=== PATIENT | female | born 1960 | race Caucasian/White ===

== ENCOUNTER 2019-04-03 12:02 | Emergency (ER) | payer MEDICARE, MEDICAID ==
[2019-04-03 12:23] VITALS: BP 130/52
[2019-04-03] MEDS ORDERED: cefTRIAXone 1 GM Vial IM ONE (12:34)
[2019-04-03] MEDS ORDERED: Diphtheria,Pertussis(Acell),Tetanus Vaccine 0.5 ML SDV IM ONE (12:34)
--- NOTE | 2019-04-03 12:36 | EDM.PDOC ---
ED HPI GENERAL MEDICAL PROBLEM - General Chief Complaint: Lower Extremity Injury/Pain Stated Complaint: LACERATION TO RT FOOT Time Seen by Provider: 04/03/19 12:02 Source of Information: Reports: Patient, Family (daughter) History Limitations: Reports: Physical Impairment - History of Present Illness INITIAL COMMENTS - FREE TEXT/NARRATIVE: 58 y.o.w. f with DM and DM complications, came with her daughter to the ed after the PT fell asleep in the wheel chair and fell off the wheelchair by stepping into a sharp object with her right 4th toe. Her 4th toe is only loosely attached to her right foot, there was active venous bleed as well. No other acute injuries. BP 130/52 RR 18 Temp 98.6 Pluse ox 98% on RA Pulse 98 Onset Date: 04/03/19 Onset Time: 07:00 Duration: Hour(s):, Constant Location: Reports: Lower Extremity, Right (4th toe) Quality: Reports: Ache, Dull Improves with: Reports: Rest Worsens with: Reports: Movement Context: Reports: Trauma (pt stepped onto on sharb object. ) Associated Symptoms: Reports: No Other Symptoms Treatments DAY CARE AIDE: Reports: Dressing(s) Right Feet Pain Score (Numeric/FACES): 10 - Related Data Allergies Allergy/AdvReac Type Severity Reaction Status Date / Time codeine Allergy Change Verified 04/03/19 12:06 Mental Status lactose Allergy Diarrhea Verified 04/03/19 12:06 Sulfa (Sulfonamide Allergy Cannot Verified 04/03/19 12:06 Antibiotics) Remember Home Meds: Home Meds Aspirin [Low Dose Aspirin EC] 162 mg PO DAILY 06/16/14 [History] Ibuprofen [Advil] 200 mg PO TID PRN 06/16/14 [History] Insulin Aspart [NovoLOG] 40 units SQ TID 06/16/14 [History] Insulin Glarg,Human.Rec.Analog [Lantus Solostar] 48 units SUBCUT DAILY 06/16/14 [History] Lisinopril/Hydrochlorothiazide [Lisinopril-Hctz 10-12.5 mg Tab] 1 tab PO DAILY 06/16/14 [History] Loperamide HCl [Anti-Diarrheal] 2 mg PO ASDIRECTED PRN 06/16/14 [History] metFORMIN [Glucophage] 500 mg PO BID 06/16/14 [History] Calcium/Cranberry Fruit [Cranberry Fruit 160-400 MG] 2 tab PO DAILY 04/07/16 [ History] Cholecalciferol (Vitamin D3) [Vitamin D] 5,000 unit PO DAILY 04/07/16 [History] Fish Oil/[place]-3 Fatty Acids [Fish Oil 1,000 MG] 2,000 mg PO DAILY 04/07/16 [ History] Varenicline Tartrate [Chantix] 1 each PO ASDIRECTED 04/07/16 [History] atorvaSTATin [Lipitor] 20 mg PO BEDTIME 04/07/16 [History] rOPINIRole HCl [Ropinirole HCl] 2 mg PO BEDTIME PRN 04/07/16 [History] Acetaminophen [Tylenol Arthritis] 2 tab PO BEDTIME 04/03/19 [History] Cephalexin [Keflex] 500 mg PO Q6HRRT #40 capsule 04/03/19 [Rx] Empagliflozin [Jardiance] 1 tab PO DAILY 04/03/19 [History] Furosemide 2 tab PO DAILY 04/03/19 [History] Gabapentin [Neurontin] 1 cap PO BEDTIME 04/03/19 [History] Past Medical History HEENT History: Reports: Other (See Below) Other HEENT History: DIABETIC RETINOPATHY OF BOTH EYES Cardiovascular History: Reports: High Cholesterol, Hypertension Musculoskeletal History: Reports: Amputation Endocrine/Metabolic History: Reports: Diabetes, Type II, Vitamin D Deficiency, Other (See Below) Other Endocrine/Metabolic History: TOXIC MULTINODULAR GOITER, ELEVATED ALKALINE PHOS. LEVEL Oncologic (Cancer) History: Reports: Cervix Dermatologic History: Reports: Other (See Below) Other Dermatologic History: ATOPIC DERMATITIS - Past Surgical History HEENT Surgical History: Reports: Myringotomy w Tube(s), Tonsillectomy, Other ( See Below) Female Surgical History: Reports: Hysterectomy Musculoskeletal Surgical History: Reports: Carpal Tunnel Social & Family History - Tobacco Use Smoking Status *Q: Current Every Day Smoker Years of Tobacco use: 30 Packs/Tins Daily: 1 Used Tobacco, but Quit: No Second Hand Smoke Exposure: No - Caffeine Use Caffeine Use: Reports: Coffee, Soda - Recreational Drug Use Recreational Drug Use: No Review of Systems - Review of Systems Review Of Systems: See Below Constitutional: Reports: No Symptoms Eyes: Reports: No Symptoms Ears: Reports: No Symptoms Nose: Reports: No Symptoms Mouth/Throat: Reports: No Symptoms Respiratory: Reports: No Symptoms Cardiovascular: Reports: No Symptoms GI/Abdominal: Reports: No Symptoms Genitourinary: Reports: No Symptoms Musculoskeletal: Reports: No Symptoms Skin: Reports: Lesions (right 4th toe) Neurological: Reports: No Symptoms Psychiatric: Reports: No Symptoms ED EXAM, GENERAL - Physical Exam Exam: See Below Exam Limited By: No Limitations General Appearance: Alert, WD/WN, Obese Eye Exam: Bilateral Eye: Normal Inspection Ears: Normal External Exam Ear Exam: Bilateral Ear: Auricle Normal Nose: Normal Inspection Throat/Mouth: Normal Inspection, Normal Lips, Normal Voice, No Airway Compromise Head: Atraumatic, Normocephalic Neck: Normal Inspection, Supple, Non-Tender, Full Range of Motion Respiratory/Chest: No Respiratory Distress, Lungs Clear, Normal Breath Sounds Cardiovascular: Normal Peripheral Pulses, Regular Rate, Rhythm, No Edema Peripheral Pulses: 1+: Brachial (L) GI/Abdominal: Normal Bowel Sounds, Soft, Non-Tender, No Organomegaly, Pelvis Stable (Female) Exam: Deferred Rectal (Female) Exam: Deferred Back Exam: Normal Inspection, Full Range of Motion Extremities: Other (left foot below knee amputation) Neurological: Alert, Oriented, CN II-XII Intact, Normal Cognition Psychiatric: Normal Affect, Normal Mood Skin Exam: Wound/Incision (4th toe right foot) Lymphatic: No Adenopathy ED TRAUMA EXTREMITY PROCEDURES - Laceration/Wound Repair Right Toe - Fourth Appearance: Subcutaneous, Stellate, Irregular, Mildly Contaminated Distal NVT: Other (Tendon and nerved fully lacerated. Pt is not able to =move toes because tendon and nerves cut at [facility] base) Anesthetic Type: Local Local Anesthesia - Bupivicaine (Marcaine): 0.5% Plain Local Anesthetic Volume: 4cc Skin Prep: Providone-Iodine (Betadine), Saline Exploration/Debridement/Repair: Wound Explored, In a Bloodless Field, Explored to Base, No Foreign Material Found Closed With: Sutures Suture Size: 3-0 # of Sutures: 4 Suture Type: Other (ethilon) Tetanus Status Addressed: Yes (today) Complications: No Course - Vital Signs Text/Narrative:: 58 y.o.w. f with DM and DM complications, came with her daughter to the ed after the PT fell asleep in the wheel chair and fell off the wheelchair by stepping into a sharp object with her right 4th toe. Her 4th toe is only loosely attached to her right foot, there was active venous bleed as well. No other acute injuries. BP 130/52 RR 18 Temp 98.6 Pluse ox 98% on RA Pulse 98 PE: WNWD W F with complications of DM came with a LAC at her right 4th toe with bleed to the ED, tendon and nerves lacerated Imaging: R foot: Chip fx right 4th toe. Procedure: Please see note above Impression: 4th toe Chip fracture with 90% separation at base at prox metatarsale, tendon . Tx: Wound care Reexam: Pt was stable in the ED Plan: D/C with instructions Last Recorded V/S: Last Vital Signs Temp 97.8 C H 04/03/19 12:12 Pulse 83 04/03/19 12:12 Resp 16 04/03/19 12:12 BP 130/52 L 04/03/19 12:12 Pulse Ox 96 04/03/19 12:12 - Orders/Labs/Meds Orders: Active Orders 24 hr Category Date Time Status Vaccines to be Administered [RC] PER UNIT ROUTINE Care 04/03/19 12:34 Active Foot Comp Min 3V Rt [CR] Stat Exams 04/03/19 12:32 Taken Meds: Medications Discontinued Medications Generic Name Dose Route Start Last Admin Trade Name Freq PRN Reason Stop Dose Admin Ceftriaxone Sodium 1 gm 04/03/19 12:34 04/03/19 13:50 Rocephin IM 04/03/19 12:35 1 gm ONETIME ONE Administration Diphtheria/Tetanus/Acell Pertussis 0.5 ml 04/03/19 12:34 04/03/19 13:47 Adacel IM 04/03/19 12:35 0.5 ml .ONCE ONE Administration Departure - Departure Time of Disposition: 16:07 Disposition: Home, Self-Care 01 Condition: Good Clinical Impression: Toe laceration Qualifiers: Encounter type: subsequent encounter Toe: lesser toe Damage to nail status: without damage Foreign body presence: without foreign body Laterality: right Qualified Code(s): S91.114D - Laceration without foreign body of right lesser toe(s) without damage to nail, subsequent encounter - Discharge Information Prescriptions: Cephalexin [Keflex] 500 mg PO Q6HRRT #40 capsule Instructions: Wound Care, Adult Referrals: Ritesh Lloyd MD [Primary Care Provider] - Forms: ED Department Discharge Additional Instructions: Please take the ABx as recommended, please apply Neosporin to wound daily, wound check in 2-3 days, Come back if your symptoms get worse acutely - My Orders Last 24 Hours: My Active Orders 04/03/19 12:32 Foot Comp Min 3V Rt [CR] Stat 04/03/19 12:34 Vaccines to be Administered [RC] PER UNIT ROUTINE - Assessment/Plan Last 24 Hours: My Active Orders 04/03/19 12:32 Foot Comp Min 3V Rt [CR] Stat 04/03/19 12:34 Vaccines to be Administered [RC] PER UNIT ROUTINE
--- NOTE | 2019-04-04 08:20 | CR ---
INDICATION: Trauma to right foot--fourth toe. RIGHT FOOT: Three views of the right foot were obtained and revealed suggestion of a tiny chip fracture fragment off the fused middle phalanx of the 4th digit at the proximal metaphysis laterally--at the interphalangeal joint. There is also another tiny bony density along the medial aspect of that joint suggesting a previous chip fracture fragment. This likely is old. Degenerative changes with deformity are noted at the first metatarsophalangeal joint. Degenerative changes are noted at the subtalar joints and minimally at the ankle mortise. Overall soft tissue swelling is noted in the visualized calf and foot area. MTDD
== END 2019-04-03 16:40 | disposition home or self-care (01) ==
LOC: FB.ED 12:02
DX: S92.511A Displaced fracture of proximal phalanx of right lesser toe(s), initial encounter for closed fracture (principal); S96.921A Laceration of unspecified muscle and tendon at ankle and foot level, right foot, initial encounter; S91.114A Laceration without foreign body of right lesser toe(s) without damage to nail, initial encounter; I10 Essential (primary) hypertension; E11.9 Type 2 diabetes mellitus without complications; F17.210 Nicotine dependence, cigarettes, uncomplicated; Z23 Encounter for immunization; Z96.22 Myringotomy tube(s) status; Z98.890 Other specified postprocedural states; Z88.2 Allergy status to sulfonamides; Z88.5 Allergy status to narcotic agent; Z91.011 Allergy to milk products; Z79.82 Long term (current) use of aspirin; Z79.4 Long term (current) use of insulin; W26.8XXA Contact with other sharp object(s), not elsewhere classified, initial encounter
CPT/HCPCS: 12001; 73630; 90471; 90715; 96372; 99283; J0696

== ENCOUNTER 2019-04-05 09:13 | Day surgery (SDC) | payer MEDICARE, MEDICAID ==
[2019-04-05] MEDS ORDERED: fentaNYL 100 MCG/2 ML SDV IV ONE (09:14)
[2019-04-05] MEDS ORDERED: Propofol 200 MG/20 ML SDV IV ONE (09:14)
[2019-04-05] MEDS ORDERED: Ondansetron 4 MG/2 ML SDV IVPUSH ONE (09:14)
[2019-04-05] MEDS ORDERED: Midazolam 1 MG/ML 2 ML SDV IV ONE (09:14)
[2019-04-05] MEDS ORDERED: Lactated Ringers 1,000 ML IV SCH (09:15)
[2019-04-05] MEDS ORDERED: Albuterol/Ipratropium 3.0-0.5 MG/3 ML Neb Soln NEB ONE (09:51)
[2019-04-05] MEDS ORDERED: Bupivacaine 0.5% 30 ML SDV ONE (10:50)
[2019-04-05] MEDS ORDERED: Lidocaine 1% 20 ML MDV ONE (10:50)
[2019-04-05] MEDS ORDERED: Acetaminophen/HYDROcodone 325-5 MG Tab PO PRN (11:25)
--- NOTE | 2019-04-05 11:30 | PCM.OPNOTE ---
- General Post-Op/Procedure Note Date of Surgery/Procedure: 04/05/19 Operative Procedure(s): right 4th toe amputation Findings: ulcers dorsum of toe phalange fx. Pre Op Diagnosis: diabetic toe ucler wth necrosis of muscle right 4th toe Post-Op Diagnosis: Same Anesthesia Technique: Local (1 % lido with epi/0.5% buvipicaine 7 ml), MAC Primary Surgeon: Michael Bullock Anesthesia Provider: Giacomo Park Pathology: toe Drain/Tube Comments:: vessle loop Complications: none Condition: Good Free Text/Narrative:: see dictation
[2019-04-05] MEDS ORDERED: Acetaminophen 650 MG Tab.ER PO ONE (11:46)
[2019-04-05] MEDS ORDERED: Acetaminophen 325 MG Tab PO ONE (11:58)
[2019-04-05 14:00] VITALS: BP 130/63
--- NOTE | 2019-04-05 17:25 | OR ---
DATE OF OPERATION: 04/05/2019 SURGEON: Michael Bullock MD PROCEDURE PERFORMED: Amputation of right 4th toe. PREOPERATIVE DIAGNOSIS: Diabetic toe ulcer with necrosis of underlying muscle. POSTOPERATIVE DIAGNOSIS: Diabetic toe ulcer with necrosis of underlying muscle. INDICATIONS FOR PROCEDURE: This is a 58-year-old white female with a longstanding history of an ulceration on the dorsum of her toe which had been treated with oral antibiotics. She apparently tripped and fell and sustained a laceration on the plantar surface of the toe with exposed bone. On evaluating the wound and the x-rays, appears to be a lesion that will not heal, and I recommended the amputation. DESCRIPTION OF OPERATION: After an excellent IV sedation was administered, the area was prepped and draped in usual sterile manner. The wound was infiltrated with local approximately 7 mL of 1:1 mixture of 1% lidocaine with epinephrine and 0.5% bupivacaine. A tennis racket incision was then carried out, cutting down to the level of the middle flange. There was a fracture in the flange and on manipulating the toe, the toe came out with approximately half a flange still present. Periosteal elevator was used to elevate the soft tissue around the flange down to the level of the middle tarsal head. The flange was then removed. Then using rongeurs, the metatarsal head had the cartilage removed. Bleeding was controlled with electrocautery and it should be noticed that this was very good. The soft tissue was reapproximated then with several interrupted 0 Vicryl. A vessel loop was placed as a temporary drain and then the skin was closed with interrupted 3-0 nylon. Dressing was applied after applying Xeroform, Kerlix, 4x4s, and Kerlix wrap. The patient was taken to recovery in good condition. /[id number] /MODL
== END 2019-04-05 12:45 | disposition home or self-care (01) ==
LOC: FB.SDS 09:13
PROVIDERS: ATTEND Surgery
DX: E11.621 Type 2 diabetes mellitus with foot ulcer (principal); L97.513 Non-pressure chronic ulcer of other part of right foot with necrosis of muscle; S92.501A Displaced unspecified fracture of right lesser toe(s), initial encounter for closed fracture; I10 Essential (primary) hypertension; E11.51 Type 2 diabetes mellitus with diabetic peripheral angiopathy without gangrene; E04.2 Nontoxic multinodular goiter; K21.9 Gastro-esophageal reflux disease without esophagitis; F17.210 Nicotine dependence, cigarettes, uncomplicated; G47.30 Sleep apnea, unspecified; M10.9 Gout, unspecified; W01.0XXA Fall on same level from slipping, tripping and stumbling without subsequent striking against object, initial encounter; Z88.5 Allergy status to narcotic agent; Z88.2 Allergy status to sulfonamides; Z88.8 Allergy status to other drugs, medicaments and biological substances; Z91.018 Allergy to other foods; Z99.89 Dependence on other enabling machines and devices; Z79.82 Long term (current) use of aspirin; Z79.4 Long term (current) use of insulin; Z79.899 Other long term (current) drug therapy
CPT/HCPCS: 01480; 28820; 36415; 80048; A9270; J2001; J2250; J2405; J2704; J3010; J3490; J7120; J7620-GY

== ENCOUNTER 2020-06-28 07:52 | Inpatient (IN) | payer MEDICARE, MEDICAID ==
[2020-06-28] MEDS ORDERED: Sodium Chloride 0.9% 1,000 ML IV SCH (10:30)
[2020-06-28] MEDS ORDERED: Piperacillin/Tazobactam 4.5 GM in Sodium Chloride 0.9% 100 ML IV SCH (10:30)
--- NOTE | 2020-06-28 11:05 | CR ---
INDICATION: Weakness. CHEST, 1 VIEW: AP upright view of the chest, 06/28/20, was compared with 12/26/10 and 12/20/10. The heart appears to be increased in size compared with the previous study. The aorta is calcified in the arch area, which is a new finding. Upper lung field pulmonary vasculature is minimally prominent as are interstitial changes, raising question of a mild degree of CHF and interstitial lung edema. This should be correlated clinically. No consolidating pneumonia, or effusion was identified. IMPRESSION: 1. ASHD with cardiomegaly with possible mild or early CHF and mild interstitial lung edema. 2. Exogenous obesity. MTDD
--- NOTE | 2020-06-28 11:09 | CR ---
INDICATION: Low back pain/fall. LUMBOSACRAL SPINE: Three views of the lumbosacral spine were obtained 06/28/20 - no comparison study. Bridging hypostatic changes are noted at T11-12, T12-L1 with vertebral body and disk heights appearing fairly well maintained. The lumbosacral spine was otherwise fairly normal in appearance as to hypertrophic change. Bone density may be normal. There is a slight tilt of the spine to the left, which could be positional but should be correlated clinically. Sacroiliac joints appear to be intact, as well as the lumbar pedicles. The gas pattern was nonspecific. Clips compatible with cholecystectomy are noted. Calcifications are noted in the abdominal aorta and iliac arteries. IMPRESSION: 1. No acute fracture or dislocation identified. 2. Slight tilt, which could be positional. 3. Degenerative hypertrophic changes noted at the thoracolumbar spine. 4. ASD. MTDD
--- NOTE | 2020-06-28 11:12 | CR ---
INDICATION: Fall, low back pain. PELVIS, 1 VIEW: A single, frontal view of the pelvis was obtained 06/28/20 - no comparison. Minimal degenerative changes are noted at the hip joints, slightly more prominent on the left with the joint space very minimally narrowed craniolaterally, slightly more prominently on the left also. The sacroiliac joints appear to be intact. An acute fracture or dislocation was not identified. Bone density appeared to be normal. IMPRESSION: 1. No acute fracture or dislocation. 2. Minimal osteoarthritis hip joints. 3. If symptoms persist - if occult bony abnormality is suspected clinically, nuclear bone imaging may be helpful for further evaluation, as well as CT or MRI, as felt to be clinically necessary. MTDD
[2020-06-28] MEDS ORDERED: Loperamide 2 MG Cap PO PRN (12:11)
[2020-06-28] MEDS ORDERED: Enoxaparin 40 MG/0.4 ML Syringe SUBCUT SCH (12:15)
[2020-06-28] MEDS ORDERED: Enoxaparin 30 MG/0.3 ML Syringe SUBCUT SCH (13:00)
[2020-06-28] MEDS: Insulin Lispro 100 Unit/ML 3 ML KwikPen SUBCUT SCH ×2 (13:23→18:27)
--- NOTE | 2020-06-28 13:58 | HP ---
ADMISSION DATE: 06/28/2020 CHIEF COMPLAINT: Cellulitis, weakness, falls. HISTORY OF PRESENT ILLNESS: Cleo is a 60-year-old resident of [place] with a history of type 2 diabetes, peripheral vascular disease, and a left leg BKA several years ago. According to the patient, she has fallen 3 times in the last 48 hours. She had to call the ambulance the first time to help her get up and then this morning she fell again and was unable to get up. She summoned the ambulance and they brought her to [facility] where she was evaluated by Dr. Saucedo and is now admitted. She has been having redness and discomfort to her right lower extremity that is long ongoing. She states that she has had pain in her right hip since the first fall and now pain in her lumbar spine and both hips since second fall. Laboratory evaluation in the ER showed her to have a white count of 15,500 with left shift. BUN 39, creatinine 1.7, glucose of 370, and the urine positive for nitrites, glucosuria, and pyuria. PAST MEDICAL HISTORY: Significant for longstanding type 2 diabetes. She has also had the left BKA several years ago as mentioned. She has had surgical removal of her right 4th toe for peripheral vascular disease last year. She has had diagnosis of narcolepsy. She has had left eye enucleation, enucleation post injury and blindness. She has had chronic longstanding poorly-controlled diabetes, obesity, COPD with continued smoking, gout, Graves disease, vitamin D deficiency, diabetic retinopathy, restless legs. PAST SURGICAL HISTORY: Cataract surgery, carpal tunnel surgery, hysterectomy, T and A, myringotomy with tubes. MEDICATIONS: 1. Aspirin 162 mg daily. 2. Lipitor 20 mg at bedtime. 3. Celebrex 200 mg b.i.d. 4. Furosemide 40 mg daily. 5. Lantus 35 units at bedtime. 6. Lisinopril/HCT 08/12.5 one daily. 7. Imodium p.r.n. 8. Requip 2 mg at bedtime p.r.n. restless legs. 9. Augmentin 875 b.i.d. 10.Fish oil capsules 2000 mg daily. 11.Giardia 25 mg daily. 12.Vitamin D 5000 units daily. 13.Cranberry juice tablets 2 daily. ALLERGIES: Codeine, lactose, and sulfa listed. HABITS: Current smoker, continuing. SOCIAL HISTORY: The patient is and lives by herself in [place]. She has one daughter listed as next of kin. She has 3 children. FAMILY HISTORY: Positive for diabetes and hypertension in her mother. Diabetes in father and brothers. REVIEW OF SYSTEMS: GENERAL: No seizures, syncope, or recent significant weight change. SKIN: Positive for the rash of her right lower extremity that is chronic. HEENT: No recent changes in hearing. She has blindness in left eye and decreased vision in the right eye. No sore throat. She does report a chronic smoker's cough. Nothing new. HEART: No chest pain or palpitations. ABDOMEN: No abdominal pain, nausea, diarrhea. EXTREMITIES: No joint inflammation. She does report pain in both hips and low back since her falls. She uses a locomotion. She uses a wheelchair when she does not have her prosthesis on, but when she has her left lower extremity BKA prosthesis applied, she walks. PHYSICAL EXAMINATION: GENERAL: She is alert, comfortable, and a good historian. HEENT: Her left eye remains closed. Right pupil appears reactive. Throat is clear. Mouth dry. LUNGS: Clear to the bases. HEART: Regular without murmur or gallop. ABDOMEN: Normal bowel sounds. Soft and nontender. EXTREMITIES: Show 3+ edema to the knee on the right with doughy thickened skin, redness, warmth. She has a left BKA prosthesis in place. She reports a sore area in right MTP joint area. We will evaluate this further once her shoe and sock are removed from that side and she is in bed and her shoe and sock are removed. LABORATORY DATA: White count 15,500, hemoglobin 13. Sodium 137, potassium 3.7, BUN 39, creatinine 1.7. Urinalysis positive nitrites, positive glycosuria. ASSESSMENT: A 60-year-old woman with: 1. Uncontrolled diabetes with cellulitis of right leg, recent falls and weakness. She has also strained her hips and back. X-rays are negative from the ER. 2. Chronic uncontrolled diabetes. 3. Hypertension. 4. Diabetic peripheral retinopathy with left eye blindness and enucleation. 5. Hyperlipidemia. 6. Obesity. 7. Restless legs syndrome. PLAN: She is admitted to acute care. We will treat her with Zosyn for both cellulitis and urinary tract infection. Monitor blood sugars and treat with insulin. Continue her Celebrex, Jardiance, Lipitor and plan for return to home when improved. /[id number] KENNETH/BELKIS
[2020-06-28] MEDS ORDERED: Hydrochlorothiazide/Lisinopril 12.5-10 MG Tab PO SCH (14:00)
[2020-06-28] MEDS ORDERED: Empagliflozin 25 MG Tab PO SCH (14:00)
[2020-06-28] MEDS ORDERED: Furosemide 40 MG Tab PO SCH (14:01)
[2020-06-28] MEDS: Aspirin 81 MG Tab.EC PO SCH (14:04)
[2020-06-28] MEDS: rOPINIRole 1 MG Tab PO SCH ×2 (14:05→20:30)
[2020-06-28] MEDS: Acetaminophen 650 MG Tab.ER PO SCH ×2 (15:25→20:33)
[2020-06-28] MEDS: Piperacillin/Tazobactam 2.25 GM in Sodium Chloride 0.9% 50 ML IV SCH (20:25)
[2020-06-28] MEDS ORDERED: Insulin Glargine,Human Rec. Analog 100 Units/ML 3 ML Pen SUBCUT SCH (21:00)
[2020-06-28] MEDS: Sodium Chloride 0.9% 10 ML Syringe FLUSH PRN (21:00)
[2020-06-28] MEDS ORDERED: Celecoxib 200 MG Cap PO SCH (21:00)
[2020-06-28] MEDS ORDERED: atorvaSTATin 20 MG Tab PO SCH (21:00)
--- NOTE | 2020-06-28 21:37 | EDM.PDOC ---
ED HPI GENERAL MEDICAL PROBLEM - General Chief Complaint: General Stated Complaint: FALL Time Seen by Provider: 06/28/20 08:05 Source of Information: Reports: Patient History Limitations: Reports: No Limitations - History of Present Illness INITIAL COMMENTS - FREE TEXT/NARRATIVE: Patient presented to the ED because of weakness. She fell twice today. Last night and this morning because of profound weakness she wasn't able to get up. Denies any chest pain, N/V, dyspnea,. There is no recent cough/cold, fever or chills. Right Upper Arm Pain Score (Numeric/FACES): 2 - Related Data Allergies Allergy/AdvReac Type Severity Reaction Status Date / Time codeine Allergy Change Verified 06/28/20 16:47 Mental Status lactose Allergy Diarrhea Verified 06/28/20 16:47 Sulfa (Sulfonamide Allergy Cannot Verified 06/28/20 16:47 Antibiotics) Remember Home Meds: Home Meds Aspirin [Low Dose Aspirin EC] 162 mg PO DAILY 06/16/14 [History] Insulin Aspart [NovoLOG] 40 units SQ TID 06/16/14 [History] Insulin Glarg,Human.Rec.Analog [Lantus Solostar] 48 units SUBCUT DAILY 06/16/14 [History] Lisinopril/Hydrochlorothiazide [Lisinopril-Hctz 10-12.5 mg Tab] 1 tab PO DAILY 06/16/14 [History] Calcium/Cranberry Fruit [Cranberry Fruit 160-400 MG] 2 tab PO DAILY 04/07/16 [History] Cholecalciferol (Vitamin D3) [Vitamin D] 5,000 unit PO DAILY 04/07/16 [History] Fish Oil/Racine-3 Fatty Acids [Fish Oil 1,000 MG] 2,000 mg PO DAILY 04/07/16 [History] atorvaSTATin [Lipitor] 20 mg PO BEDTIME 04/07/16 [History] rOPINIRole HCl [Ropinirole HCl] 1 mg PO BID 04/07/16 [History] Furosemide 40 mg PO DAILY 04/03/19 [History] Amoxicillin/Potassium Clav [Augmentin 875-125 Tablet] 1 ea PO BID 04/05/19 [History] Calcium/Cranberry Fruit [Cranberry Fruit 160-400 MG] 2 ea PO DAILY 04/05/19 [History] Empagliflozin [Jardiance] 25 mg PO QAM 04/05/19 [History] Loperamide HCl [Anti-Diarrheal] 2 mg PO ASDIRECTED PRN 04/05/19 [History] Acetaminophen [Tylenol Arthritis] 650 mg PO BID 06/28/20 [History] Past Medical History HEENT History: Reports: Cataract, Impaired Vision, Other (See Below) Other HEENT History: DIABETIC RETINOPATHY OF BOTH EYES Cardiovascular History: Reports: High Cholesterol, Hypertension Genitourinary History: Reports: Diabetic Nephropathy MEDICAL LEADER History: Reports: Other MEDICAL LEADER History: III PARA III Musculoskeletal History: Reports: Amputation Neurological History: Reports: None Psychiatric History: Reports: None Endocrine/Metabolic History: Reports: Diabetes, Type II, Vitamin D Deficiency, Other (See Below) Other Endocrine/Metabolic History: TOXIC MULTINODULAR GOITER, ELEVATED ALKALINE PHOS. LEVEL Hematologic History: Reports: None Immunologic History: Reports: None Oncologic (Cancer) History: Reports: Cervix Dermatologic History: Reports: Other (See Below) Other Dermatologic History: ATOPIC DERMATITIS - Infectious Disease History Infectious Disease History: Reports: Chicken Pox - Past Surgical History HEENT Surgical History: Reports: Cataract Surgery, Myringotomy w Tube(s), Tonsillectomy, Other (See Below) Other HEENT Surgeries/Procedures: Blind left eye, VITRECTOMY - LEFT STATES TOTAL OF 7 EYE SURGERIES. DIABETIC RETINOPATHY. BILATERAL PHACO IOL. GI Surgical History: Reports: Colonoscopy Female Surgical History: Reports: Hysterectomy Musculoskeletal Surgical History: Reports: Carpal Tunnel Social & Family History - Family History Family Medical History: Noncontributory - Tobacco Use Smoking Status *Q: Current Every Day Smoker Years of Tobacco use: 45 Packs/Tins Daily: 0.5 Used Tobacco, but Quit: No - Caffeine Use Caffeine Use: Reports: Coffee, Soda - Recreational Drug Use Recreational Drug Use: No ED ROS GENERAL - Review of Systems Review Of Systems: See Below Constitutional: Reports: No Symptoms HEENT: Reports: No Symptoms Respiratory: Reports: No Symptoms Cardiovascular: Reports: No Symptoms Endocrine: Reports: No Symptoms GI/Abdominal: Reports: No Symptoms : Reports: No Symptoms Musculoskeletal: Reports: No Symptoms Skin: Reports: Erythema Neurological: Reports: No Symptoms Hematologic/Lymphatic: Reports: No Symptoms ED EXAM, GENERAL - Physical Exam Exam: See Below Exam Limited By: No Limitations General Appearance: Alert, No Apparent Distress Eye Exam: Bilateral Eye: PERRL Ears: Normal External Exam, Normal Canal Nose: Normal Inspection, Normal Mucosa Throat/Mouth: Normal Inspection, Normal Lips, Normal Teeth Head: Atraumatic, Normocephalic Neck: Normal Inspection, Supple, Non-Tender, Full Range of Motion Respiratory/Chest: No Respiratory Distress, Lungs Clear, Normal Breath Sounds Cardiovascular: Normal Peripheral Pulses, Regular Rate, Rhythm, No Edema, No Gallop Back Exam: Normal Inspection, Full Range of Motion Extremities: Normal Inspection, Normal Range of Motion, Non-Tender Neurological: Alert, Oriented, CN II-XII Intact Psychiatric: Normal Affect Skin Exam: Warm, Erythema Course - Vital Signs Text/Narrative:: Labs/Ekg was discussed with patient Lactic acid -neg Zosyn 4.5 gm IV x1 Case discussed with Dr Diaz Last Recorded V/S: Last Vital Signs Temp 36.8 C 06/28/20 16:00 Pulse 87 06/28/20 16:00 Resp 20 06/28/20 16:00 BP 140/60 06/28/20 14:05 Pulse Ox 93 L 06/28/20 16:00 - Orders/Labs/Meds Orders: Active Orders 24 hr Category Date Time Status CULTURE BLOOD [BC] Urgent Lab 06/28/20 09:30 Received CULTURE BLOOD [BC] Urgent Lab 06/28/20 09:35 Received CULTURE URINE [RM] Stat Lab 06/28/20 10:30 Received Sodium Chloride 0.9% [Normal Saline] 1,000 ml Med 06/28/20 10:30 Active IV ASDIRECTED Sodium Chloride 0.9% [Saline Flush] Med 06/28/20 08:54 Active 10 ml FLUSH ASDIRECTED PRN Blood Culture x2 Reflex Set [OM.PC] Urgent Oth 06/28/20 08:54 Ordered Saline Lock Insert [OM.PC] Routine Oth 06/28/20 08:54 Ordered EKG 12 Lead [EK] Routine Ther 06/28/20 08:54 Ordered Medication Orders Acetaminophen (Tylenol Arthritis Pain) 650 mg PO BID [facility] Last Admin: 06/28/20 20:33 Dose: 650 mg Documented by: Admin: 06/28/20 15:25 Dose: 650 mg Documented by: MARGARET Aspirin (Halfprin) 162 mg PO DAILY [facility] Last Admin: 06/28/20 14:04 Dose: 162 mg Documented by: MARGARET Atorvastatin Calcium (Lipitor) 20 mg PO BEDTIME [facility] Last Admin: 06/28/20 20:30 Dose: 20 mg Documented by: LELE Enoxaparin Sodium (Lovenox) 30 mg SUBCUT Q24H [facility] Last Admin: 06/28/20 13:22 Dose: 30 mg Documented by: MARGARET Furosemide (Lasix) 40 mg PO DAILY [facility] Last Admin: 06/28/20 14:05 Dose: 40 mg Documented by: MARGARET Lisinopril/HCTZ (Lisinopril/Hctz 10-12.5 Mg) 1 tab PO DAILY [facility] Last Admin: 06/28/20 14:05 Dose: 1 tab Documented by: MARGARET Sodium Chloride (Normal Saline) 1,000 mls @ 999 mls/hr IV ASDIRECTED [facility] Last Admin: 06/28/20 12:30 Dose: 500 mls/hr Documented by: MARGARET Piperacillin Sod/Tazobactam (Sod 2.25 gm/ Sodium Chloride) 50 mls @ 100 mls/hr IV Q6H [facility] Last Admin: 06/28/20 20:25 Dose: 100 mls/hr Documented by: LELE Insulin Glargine (Lantus Solostar) 48 units SUBCUT BEDTIME [facility] Last Admin: 06/28/20 21:33 Dose: Not Given Documented by: Insulin Human Lispro (Humalog) 40 unit SUBCUT TIDMEALS [facility] Last Admin: 06/28/20 18:27 Dose: 38 unit Documented by: KIT Cosigned by: ADRI Admin: 06/28/20 13:23 Dose: 40 unit Documented by: MARGARET Cosigned by: KIT Loperamide HCl (Imodium) 2 mg PO ASDIRECTED PRN PRN Reason: Diarrhea Ropinirole HCl (Requip) 1 mg PO BID [facility] Last Admin: 06/28/20 20:30 Dose: 1 mg Documented by: Admin: 06/28/20 14:05 Dose: 1 mg Documented by: MARGARET Sodium Chloride (Saline Flush) 10 ml FLUSH ASDIRECTED PRN PRN Reason: Keep Vein Open Last Admin: 06/28/20 21:00 Dose: 10 ml Documented by: JOLIE Labs: Laboratory Tests 06/28/20 06/28/20 06/28/20 Range/Units 09:30 09:30 09:30 WBC 15.5 H (4.5-12.0) X10-3/uL RBC 4.37 (3.23-5.20) x10(6)uL Hgb 13.0 (11.5-15.5) g/dL Hct 40.9 (30.0-51.3) % MCV 93.8 (80-96) fL MCH 29.7 (27.7-33.6) pg MCHC 31.7 L (32.2-35.4) g/dL RDW 14.6 (11.5-15.5) % Plt Count 322 (125-369) X10(3)uL MPV 7.2 L (7.4-10.4) fL Add Manual Diff Yes Neutrophils % (Manual) 86 H (46-82) % Band Neutrophils % 1 (0-6) % Lymphocytes % (Manual) 10 L (13-37) % Monocytes % (Manual) 3 L (4-12) % Sodium 137 (135-145) mmol/L Potassium 3.7 (3.5-5.3) mmol/L Chloride 98 L D (100-110) mmol/L Carbon Dioxide 32 (21-32) mmol/L BUN 39 H (7-18) mg/dL Creatinine 1.7 H (0.55-1.02) mg/dL Est Cr Clr Drug Dosing TNP Estimated GFR (MDRD) 31 L (>60) BUN/Creatinine Ratio 22.9 H (9-20) Glucose 370 H D (80-116) mg/dL Lactic Acid (0.4-2.0) mmol/L Calcium 8.9 (8.6-10.2) mg/dL Total Bilirubin 0.5 (0.1-1.3) mg/dL AST 16 (5-25) IU/L ALT 17 (12-36) U/L Alkaline Phosphatase 120 H (56-112) IU/L Troponin I 20.6 (4.0-60.3) pg/mL Total Protein 7.0 (6.0-8.0) g/dL Albumin 2.6 L (3.2-4.6) g/dL Globulin 4.4 g/dL Albumin/Globulin Ratio 0.6 Urine Color (YELLOW) Urine Appearance (CLEAR) Urine pH (5.0-6.5) Ur Specific Sumner (1.010-1.025) Urine Protein (NEGATIVE) mg/dL Urine Glucose (UA) (NORMAL) mg/dL Urine Ketones (NEGATIVE) mg/dL Urine Occult Blood (NEGATIVE) Urine Nitrite (NEGATIVE) Urine Bilirubin (NEGATIVE) Urine Urobilinogen (NEGATIVE) mg/dL Ur Leukocyte Esterase (NEGATIVE) Urine WBC (0-5) Ur Squamous Epith Cells (NS,R,O) Urine Bacteria (NS) 06/28/20 06/28/20 Range/Units 09:30 10:30 WBC (4.5-12.0) X10-3/uL RBC (3.23-5.20) x10(6)uL Hgb (11.5-15.5) g/dL Hct (30.0-51.3) % MCV (80-96) fL MCH (27.7-33.6) pg MCHC (32.2-35.4) g/dL RDW (11.5-15.5) % Plt Count (125-369) X10(3)uL MPV (7.4-10.4) fL Add Manual Diff Neutrophils % (Manual) (46-82) % Band Neutrophils % (0-6) % Lymphocytes % (Manual) (13-37) % Monocytes % (Manual) (4-12) % Sodium (135-145) mmol/L Potassium (3.5-5.3) mmol/L Chloride (100-110) mmol/L Carbon Dioxide (21-32) mmol/L BUN (7-18) mg/dL Creatinine (0.55-1.02) mg/dL Est Cr Clr Drug Dosing Estimated GFR (MDRD) (>60) BUN/Creatinine Ratio (9-20) Glucose (80-116) mg/dL Lactic Acid 1.3 (0.4-2.0) mmol/L Calcium (8.6-10.2) mg/dL Total Bilirubin (0.1-1.3) mg/dL AST (5-25) IU/L ALT (12-36) U/L Alkaline Phosphatase (56-112) IU/L Troponin I (4.0-60.3) pg/mL Total Protein (6.0-8.0) g/dL Albumin (3.2-4.6) g/dL Globulin g/dL Albumin/Globulin Ratio Urine Color Yellow (YELLOW) Urine Appearance Cloudy (CLEAR) Urine pH 5.0 (5.0-6.5) Ur Specific Sumner 1.015 (1.010-1.025) Urine Protein Negative (NEGATIVE) mg/dL Urine Glucose (UA) >1000 H (NORMAL) mg/dL Urine Ketones Negative (NEGATIVE) mg/dL Urine Occult Blood Negative (NEGATIVE) Urine Nitrite Positive H (NEGATIVE) Urine Bilirubin Negative (NEGATIVE) Urine Urobilinogen Normal (NEGATIVE) mg/dL Ur Leukocyte Esterase Small H (NEGATIVE) Urine WBC 10-20 H (0-5) Ur Squamous Epith Cells Few H (NS,R,O) Urine Bacteria Many H (NS) Meds: Medications Generic Name Dose Route Start Last Admin Trade Name Freq PRN Reason Stop Dose Admin Acetaminophen 650 mg 06/28/20 15:00 06/28/20 20:33 Tylenol Arthritis Pain PO 650 mg BID MARISSA Administration Aspirin 162 mg 06/28/20 14:00 06/28/20 14:04 Halfprin PO 162 mg DAILY MARISSA Administration Atorvastatin Calcium 20 mg 06/28/20 21:00 06/28/20 20:30 Lipitor PO 20 mg BEDTIME MARISSA Administration Enoxaparin Sodium 30 mg 06/28/20 13:00 06/28/20 13:22 Lovenox SUBCUT 30 mg Q24H MARISSA Administration Furosemide 40 mg 06/28/20 14:01 06/28/20 14:05 Lasix PO 40 mg DAILY MARISSA Administration Lisinopril/HCTZ 1 tab 06/28/20 14:00 06/28/20 14:05 Lisinopril/Hctz 10-12.5 Mg PO 1 tab DAILY MARISSA Administration Sodium Chloride 1,000 mls @ 999 mls/hr 06/28/20 10:30 06/28/20 12:30 Normal Saline IV 500 mls/hr ASDIRECTED MARISSA Administration Piperacillin Sod/Tazobactam 50 mls @ 100 mls/hr 06/28/20 20:00 06/28/20 20:25 Sod 2.25 gm/ Sodium Chloride IV 100 mls/hr Q6H MARISSA Administration Insulin Glargine 48 units 06/28/20 21:00 06/28/20 21:33 Lantus Solostar SUBCUT Not Given BEDTIME [facility] Insulin Human Lispro 40 unit 06/28/20 13:00 06/28/20 18:27 Humalog SUBCUT 38 unit TIDMEALS MARISSA Administration Loperamide HCl 2 mg 06/28/20 12:11 Imodium PO ASDIRECTED PRN Diarrhea Ropinirole HCl 1 mg 06/28/20 14:00 06/28/20 20:30 Requip PO 1 mg BID MARISSA Administration Sodium Chloride 10 ml 06/28/20 08:54 06/28/20 21:00 Saline Flush FLUSH 10 ml ASDIRECTED PRN Administration Keep Vein Open Discontinued Medications Generic Name Dose Route Start Last Admin Trade Name Freq PRN Reason Stop Dose Admin Enoxaparin Sodium 40 mg 06/28/20 12:15 06/28/20 16:07 Lovenox SUBCUT Not Given Q24H [facility] Piperacillin Sod/Tazobactam 100 mls @ 200 mls/hr 06/28/20 10:30 06/28/20 13:20 Sod 4.5 gm/ Sodium Chloride IV 200 mls/hr Q6H MARISSA Administration Insulin Glargine 35 units 06/29/20 09:00 Lantus Solostar SUBCUT DAILY [facility] Departure - Departure Time of Disposition: 13:00 Disposition: Admitted As Inpatient 66 Clinical Impression: Cellulitis, Dehydration, MAYELA (acute kidney injury), UTI (urinary tract infection) - Discharge Information Sepsis Event Note (ED) - Evaluation Sepsis Screening Result: No Definite Risk - My Orders Last 24 Hours: My Active Orders 06/28/20 08:54 Sodium Chloride 0.9% [Saline Flush] 10 ml FLUSH ASDIRECTED PRN Blood Culture x2 Reflex Set [OM.PC] Urgent Saline Lock Insert [OM.PC] Routine EKG 12 Lead [EK] Routine 06/28/20 09:30 CULTURE BLOOD [BC] Urgent 06/28/20 09:35 CULTURE BLOOD [BC] Urgent 06/28/20 10:30 CULTURE URINE [RM] Stat Sodium Chloride 0.9% [Normal Saline] 1,000 ml IV ASDIRECTED - Assessment/Plan Last 24 Hours: My Active Orders 06/28/20 08:54 Sodium Chloride 0.9% [Saline Flush] 10 ml FLUSH ASDIRECTED PRN Blood Culture x2 Reflex Set [OM.PC] Urgent Saline Lock Insert [OM.PC] Routine EKG 12 Lead [EK] Routine 06/28/20 09:30 CULTURE BLOOD [BC] Urgent 06/28/20 09:35 CULTURE BLOOD [BC] Urgent 06/28/20 10:30 CULTURE URINE [RM] Stat Sodium Chloride 0.9% [Normal Saline] 1,000 ml IV ASDIRECTED
[2020-06-29] MEDS: Piperacillin/Tazobactam 2.25 GM in Sodium Chloride 0.9% 50 ML IV SCH (01:25)
[2020-06-29] MEDS: Sodium Chloride 0.9% 10 ML Syringe FLUSH PRN (01:59)
[2020-06-29] MEDS ORDERED: Piperacillin/Tazobactam 2.25 GM in Sodium Chloride 0.9% 50 ML IV SCH (08:00)
[2020-06-29] MEDS ORDERED: Sodium Chloride 0.9% 1,000 ML IV SCH (08:00)
[2020-06-29] MEDS ORDERED: Insulin Glargine,Human Rec. Analog 100 Units/ML 3 ML Pen SUBCUT SCH (09:00)
[2020-06-29] MEDS: Insulin Lispro 100 Unit/ML 3 ML KwikPen SUBCUT SCH (09:08)
[2020-06-29] MEDS: Aspirin 81 MG Tab.EC PO SCH (09:30)
[2020-06-29] MEDS: Acetaminophen 650 MG Tab.ER PO SCH (09:30)
[2020-06-29] MEDS: rOPINIRole 1 MG Tab PO SCH (09:30)
[2020-06-29] MEDS ORDERED: EPINEPHrine 1 MG/ML 30 ML MDV IVPUSH ONE ×2 (09:32→09:35)
[2020-06-29] MEDS ORDERED: EPINEPHrine 1:10,000 1 MG/10 ML Syringe IVPUSH ONE ×2 (09:32→09:35)
--- NOTE | 2020-06-29 10:23 | PN ---
DATE SEEN: 06/29/2020 SUBJECTIVE: Mireya is a 60-year-old woman who was admitted from the emergency room yesterday because of falls, weakness, cellulitis of the lower extremity, urinary tract infection, and general declining condition. She is a longstanding diabetic and has sleep apnea. However, she has not used her CPAP machine at home in the last year by her history. On admission, she had a white count of 15,000. BUN of 39, creatinine 1.7, potassium of 3.7. She had a positive urinalysis for both pyuria and glycosuria. She was started on Zosyn, given a bolus of IV fluid, and her insulin was continued. Because of a rise in elevated creatinine, her Jardiance was stopped and her Zosyn dose was adjusted per renal dosing guidelines. She slept overnight and this morning is quite drowsy. When examined in her room this morning, she had obvious signs of sleep apnea with snoring respirations. PHYSICAL EXAMINATION: VITAL SIGNS: Blood pressure 104/50, pulse 94, temperature 98.1, O2 saturation 95% on 2 L nasal cannula. When off oxygen, she dropped into the 80s last evening. RESPIRATIONS: Snoring and her lungs were clear, however. HEART: Regular without murmur or gallop. ABDOMEN: Soft, nontender. EXTREMITIES: Leg elevation, her left below knee amputation stump appeared clean. Her right lower extremity revealed doughy-thick purplish edema with venous stasis changes. No bright erythema. No areas of open skin or discharge in the right lower extremity. ASSESSMENT: 1. Severe sleep apnea with cardiomegaly suggestive of related cardiomyopathy. 2. Hypoxia secondary to severe sleep apnea with cardiomegaly. 3. Type 2 diabetes. 4. Venous stasis, right lower extremity. 5. Urinary tract infection. 6. Acute on chronic renal insufficiency. PLAN: We will ask her family to bring in her CPAP machine from home and institute this. We will continue her IV antibiotics and hold diuretic, increasing IV fluid because of her renal dysfunction. I anticipate Mireya will require an additional 48 to 72 hours of inpatient hospital care prior to return to home and we will continue to provide palliative care measures for her underlying medical conditions. /[id number] Kevin COOPER/BELKIS
[2020-06-29] MEDS ORDERED: Norepinephrine 4 MG in Dextrose 5% in Water 246 ML IV SCH ×2 (10:40)
[2020-06-29] MEDS ORDERED: Insulin Lispro 100 Unit/ML 3 ML KwikPen SUBCUT ONE (11:19)
[2020-06-29] MEDS ORDERED: Insulin Lispro 100 Unit/ML 3 ML KwikPen SUBCUT SCH (12:00)
--- NOTE | 2020-06-30 12:32 | DISCH ---
DISCHARGE DATE: 06/29/2020 HISTORY: Cleo Baig is a 60-year-old diabetic who came in yesterday with falls, weakness, urinary tract infection, suspected cellulitis of the right lower extremity, and acute on chronic renal insufficiency. She was admitted, given IV fluid, and started on IV antibiotic with Zosyn. She was stable overnight, however, did demonstrate evidence of obstructive sleep apnea. She apparently has had this diagnosed previously, but has not used her home machine for over a year. This morning, while her nurse was in attendance, she had a respiratory and cardiac arrest. She was noted to have no respiratory effort with foam at the mouth and initial absence of pulse. CPR was initiated immediately by her nurse. Anesthesia was in-house and came to the code as well. The patient had a period of PEA for an estimated 6 to 7 minutes, and after bagging, resumed a spontaneous pulse and adequate blood pressure of 108/80, and attempts at mild respiratory effort. She did not awaken or follow commands, however. The patient was given 2 aliquots of epinephrine during the code. She is now on the ventilator with an O2 setting of 60% FiO2, tidal volume of 580, CPAP of 5, respiratory rate of 12, and is saturating at 100%. Blood pressure remains in the 108/80 range and pulse in the 80s. Phone consultation has been held with the collective bargaining specialist at [facility] in [place] who will accept her in transfer. She will be sent by ground ambulance on the ventilator and records will be sent along with her. Cooling protocol has been initiated and her body temperature is down to 93 degrees. /[id number] KENNETH/BELKIS
[2020-06-30 18:54] VITALS: BP 94/46; PULSE 88
== END 2020-06-29 11:20 | DRG 682 ==
LOC: FB.ED 07:52 → FB.MS 11:45
PROVIDERS: ADMIT Family Medicine; ATTEND Family Medicine
PROC: 5A12012 Performance of Cardiac Output, Single, Manual (ICD-10-PCS; principal; 2020-06-28)
PROC: 5A1935Z Respiratory Ventilation, Less than 24 Consecutive Hours (ICD-10-PCS; 2020-06-28)
DX: N17.9 Acute kidney failure, unspecified (principal); L03.90 Cellulitis, unspecified; I46.9 Cardiac arrest, cause unspecified; E86.0 Dehydration; H54.7 Unspecified visual loss; E11.21 Type 2 diabetes mellitus with diabetic nephropathy; L03.115 Cellulitis of right lower limb; N39.0 Urinary tract infection, site not specified; I10 Essential (primary) hypertension; Z68.42 Body mass index [BMI] 45.0-49.9, adult; Z85.41 Personal history of malignant neoplasm of cervix uteri; Z98.42 Cataract extraction status, left eye; Z98.41 Cataract extraction status, right eye; E11.628 Type 2 diabetes mellitus with other skin complications; E66.9 Obesity, unspecified; J44.9 Chronic obstructive pulmonary disease, unspecified; M10.9 Gout, unspecified; Z20.828 Contact with and (suspected) exposure to other viral communicable diseases; E05.00 Thyrotoxicosis with diffuse goiter without thyrotoxic crisis or storm; E55.9 Vitamin D deficiency, unspecified; E11.319 Type 2 diabetes mellitus with unspecified diabetic retinopathy without macular edema; G25.81 Restless legs syndrome; E11.51 Type 2 diabetes mellitus with diabetic peripheral angiopathy without gangrene; E11.65 Type 2 diabetes mellitus with hyperglycemia; E78.5 Hyperlipidemia, unspecified; H54.40 Blindness, one eye, unspecified eye; E78.00 Pure hypercholesterolemia, unspecified; I12.9 Hypertensive chronic kidney disease with stage 1 through stage 4 chronic kidney disease, or unspecified chronic kidney disease; G47.33 Obstructive sleep apnea (adult) (pediatric); N18.9 Chronic kidney disease, unspecified; F17.200 Nicotine dependence, unspecified, uncomplicated; I51.7 Cardiomegaly; I87.8 Other specified disorders of veins; Z98.49 Cataract extraction status, unspecified eye; Z90.710 Acquired absence of both cervix and uterus; Z79.82 Long term (current) use of aspirin; Z79.4 Long term (current) use of insulin; Z79.899 Other long term (current) drug therapy; Z89.512 Acquired absence of left leg below knee; Z88.5 Allergy status to narcotic agent; Z88.2 Allergy status to sulfonamides; Z88.8 Allergy status to other drugs, medicaments and biological substances
CPT/HCPCS: 31500; 36410; 36415; 71045; 72100; 72170; 80053; 81001; 82962; 83605; 83735; 83880; 84484; 85025; 87040; 87086; 87088; 87186; 93005; 94002; 99285-25; A9270-GY; J0171; J1650; J1815; J1815-GY; J2543; J7030; J7050; J7060; U0002